=== PATIENT | male | born 1980 | race Caucasian/White ===

== ENCOUNTER 2023-11-05 05:55 | Day surgery (SDC) | payer BC ==
[2023-11-03 15:58] VITALS: BMI 27.6
[2023-11-05] MEDS ORDERED: PROPOFOL 20 ML ONE ×4 (07:30→08:03)
[2023-11-05] MEDS ORDERED: Lidocaine 1% PF 5 ML VIAL ONE (07:30)
== END 2023-11-05 08:55 | disposition home or self-care (01) ==
LOC: CSHSDC 05:55
PROVIDERS: ATTEND Internal Medicine Gastroenterology
PROC: 0DBN8ZX Excision of Sigmoid Colon, Via Natural or Artificial Opening Endoscopic, Diagnostic (ICD-10-PCS; principal; 2023-11-05)
DX: Z12.11 Encounter for screening for malignant neoplasm of colon (principal); D12.5 Benign neoplasm of sigmoid colon; K57.30 Diverticulosis of large intestine without perforation or abscess without bleeding; K64.4 Residual hemorrhoidal skin tags; K92.1 Melena; F41.9 Anxiety disorder, unspecified; F32.A Depression, unspecified; E66.9 Obesity, unspecified; Z68.27 Body mass index [BMI] 27.0-27.9, adult; Z79.899 Other long term (current) drug therapy; Z80.0 Family history of malignant neoplasm of digestive organs
CPT/HCPCS: 88305; J2704

== ENCOUNTER 2025-01-10 08:15 | Outpatient (CLI) | payer OTHER | END 2025-01-10 08:16 | disposition home or self-care (01) | LOC: CSHSLEEP 08:15 | PROVIDERS: ATTEND Family Medicine Sports Medicine | DX: G47.33 Obstructive sleep apnea (adult) (pediatric) (principal); R53.83 Other fatigue; F32.A Depression, unspecified; F41.9 Anxiety disorder, unspecified | CPT/HCPCS: 95800 ==